=== PATIENT | male | born 1990 | race Caucasian/White ===

== ENCOUNTER 2018-04-19 16:46 | Emergency (ER) | payer OTHER ==
[2018-04-19 16:52] VITALS: BP 135/69
[2018-04-19] MEDS ORDERED: CEPHALEXIN 500 MG CAP PO ONE (17:18)
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
[2018-04-19] MEDS ORDERED: CEPHALEXIN 500MG PREPACK#4 BTL TAKEHOME ONE (17:28)
== END 2018-04-19 17:44 | disposition home or self-care (01) ==
DX: M71.122 Other infective bursitis, left elbow (principal); L03.90 Cellulitis, unspecified

== ENCOUNTER 2018-04-20 18:54 | Inpatient (IN) | payer OTHER ==
--- NOTE | 2018-04-20 19:08 | EDPHY ---
H & P Stated Complaint: L elbow redness swelling increasing since visit here 04/19 on keflex x 24 h - Medical/Surgical History Hx Asthma: No Hx Chronic Respiratory Disease: No Hx Diabetes: No Hx Cardiac Disease: No Hx Renal Disease: No Hx Cirrhosis: No Hx Alcoholism: No Hx HIV/AIDS: No Hx Splenectomy or Spleen Trauma: No Other PMH: denies - Social History Smoking Status: Never smoked Time Seen by Provider: 04/20/18 19:01 HPI/ROS: CHIEF COMPLAINT: Worsening left elbow redness HISTORY OF PRESENT ILLNESS: 27-year-old immunocompetent male seen emergency department approximately 24 hr ago by myself for left dorsal elbow erythema, clinical findings consistent with septic olecranon bursitis with overlying cellulitis. Aspiration not performed at that time due to concerns with the overlying cellulitis. He has taken 3 dosages of Keflex. He notes that the erythema has increased significantly. Denies fever or chills. REVIEW OF SYSTEMS: 10 systems reviewed and negative with the exception of the elements mentioned in the history of present illness PAST MEDICAL & SURGICAL HISTORY: No pertinent medical or surgical history SOCIAL HISTORY: operations manager/coordinator PHYSICAL EXAM (Prior to examination, patient consented to physical exam, hands were washed and my usual and customary physical exam procedures followed) 1) GENERAL: Well-developed, well-nourished, alert and oriented. Appears to be in no acute distress. 2) HEAD: Normocephalic, atraumatic 3) HEENT: Pupils equal, round, reactive to light bilaterally. Sclera anicteric. 4) NECK: Full range of motion, no meningeal signs. 5) LUNGS: Clear auscultation bilaterally, no wheezes, no rhonchi, no retractions. 6) HEART: Regular rate and rhythm, no murmur, no heave, no gallop. 7) ABDOMEN: No guarding, no rebound, no focal tenderness, negative McBurney's, negative Gonzalez's, negative Rovsing's, negative peritoneal sign, 8) MUSCULOSKELETAL: Left upper extremity: Compared to approximately 24 hr ago there has been a significant increase in the amount of erythema and induration. There is a central lesion on the dorsal elbow which continues. There is no drainage. No pain with axial loading of the joint. 9) BACK: No CVA tenderness, no midline vertebral tenderness, no fluctuance, no step-off, no obvious trauma, no visual or palpable abnormality. 10) SKIN: No rash, no petechiae. 11) Psychiatric: Patient is oriented X 3, there is no agitation. DIFFERENTIAL DIAGNOSIS: in No particular order including but not limited to septic arthritis, septic bursitis, cellulitis, necrotizing fasciitis, antibiotic failure (Madison Noble Tiffanie) Constitutional: Initial Vital Signs Temperature (C) 36.8 C 04/20/18 18:57 Heart Rate 72 04/20/18 18:57 Respiratory Rate 16 04/20/18 18:57 Blood Pressure 131/62 H 04/20/18 18:57 O2 Sat (%) 97 04/20/18 18:57 O2 Delivery Mode Room Air Allergies/Adverse Reactions: No Known Allergies Allergy (Verified 04/20/18 18:56) Home Medications: Medication Instructions Recorded Cephalexin [Keflex] 500 mg PO TID 7 Days cap 04/19/18 Medical Decision Making ED Course/Re-evaluation: 7:40 p.m.: Consultation with Dr. Honey Randhawa hospitalist will admit patient. Patient was also seen and examined by Dr. Lazara Danielle in the ER. Will plan on admission for worsening cellulitis of the left elbow. This time patient continues to have overlying cellulitic skin changes I do not think that aspiration to the olecranon bursa is appropriate. Doubt septic arthritis. Doubt necrotizing fasciitis. (Madison Noble) This patient was seen and examined by me. He presents with worsening olecranon bursitis/cellulitis of the left elbow. Elbow range of motion is non painful and I do not suspect a joint infection. I agree with the above assessment and plan. (Lazara Danielle) - Data Points Laboratory Results: Laboratory Results 04/20/18 19:10 04/20/18 19:10 Medications Given: Ampicillin Sodium/Sulbactam (Sodium 3 gm/ Sodium Chloride) 100 mls @ 200 mls/ hr IV Q6HRS ELMER PRN Reason: Protocol Stop: 05/21/18 11:59 Last Admin: 04/21/18 17:56 Dose: 100 mls Ibuprofen (Motrin) 600 mg PO Q6HRS PRN PRN Reason: Pain, Mild Stop: 10/17/18 21:16 Last Admin: 04/20/18 21:45 Dose: 600 mg Tramadol HCl (Ultram) 50 mg PO Q6HRS PRN PRN Reason: Pain, Moderate Able to Take PO Stop: 10/17/18 21:16 Last Admin: 04/21/18 15:57 Dose: 50 mg Discontinued Medications Cefazolin Sodium/Dextrose (Ancef 1 Gm (Premix)) 50 mls @ 200 mls/hr IV EDNOW ONE PRN Reason: Protocol Stop: 04/20/18 19:19 Last Admin: 04/20/18 19:32 Dose: 50 mls Cefazolin Sodium/Dextrose (Ancef 1 Gm (Premix)) 50 mls @ 200 mls/hr IV Q8H ELMER PRN Reason: Protocol Stop: 05/21/18 03:59 Last Admin: 04/21/18 03:21 Dose: 50 mls Lidocaine HCl (Lidocaine Hcl 1%) 0 mg MISC ONCALL ONE Stop: 04/21/18 13:31 Last Admin: 04/21/18 13:32 Dose: 300 mg Departure - Departure Disposition: [facility] Clinical Impression: Cellulitis of left elbow Condition: Fair
[2018-04-20 19:26] LABS: PLATELET COUNT 240 10^3/uL (150-400)
[2018-04-20] MEDS ORDERED: ACETAMINOPHEN 325 MG TAB PO PRN (21:17)
[2018-04-20] MEDS ORDERED: ONDANSETRON 4 MG/2 ML VIAL IVP PRN (21:17)
[2018-04-20] MEDS ORDERED: IBUPROFEN 600 MG TAB PO PRN (21:17)
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
[2018-04-21 05:33] LABS: PLATELET COUNT 223 10^3/uL (150-400)
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
[2018-04-21] MEDS: AMPICILLIN/SULBACTAM 3 GM in NS 100 ML IV SCH ×3 (12:22→23:40)
[2018-04-21] MEDS ORDERED: LIDOCAINE 1% 300 MG/30 ML SDV MISC ONE (13:30)
[2018-04-21] MEDS ORDERED: HYDROCODONE/APAP 5/325 TAB PO PRN (14:09)
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
--- NOTE | 2018-04-21 14:23 | ASMTCMCOM ---
CM Note CM Note Notes: MELINDA spoke to ELDER Stratton regarding d/c POC. Pt will most likely d/c independent when medically stable. Pt is currently on iv ampicillin. CM available for changes. Plan: Independent Date Signed: 04/21/2018 02:01 PM Electronically Signed By:AMANDA Garay
[2018-04-21] MEDS: traMADol 50 MG TAB PO PRN (15:57)
[2018-04-22] MEDS: AMPICILLIN/SULBACTAM 3 GM in NS 100 ML IV SCH ×2 (05:19→12:09)
--- NOTE | 2018-04-22 08:12 | SOAPPROG ---
SOAP Progress Note Assessment/Plan: Assessment: septic olecranon bursitis cellulitis s/p i and d Plan:continue elevation, and iv abx i would not d/c home until cellulitis is clinically improved i will see him tomorrow am, if not substantially improved, i will repeat i and d 04/22/18 08:09 Subjective: decreased overall pain still with forearm swelling Objective: Vital Signs Temp Pulse Resp BP Pulse Ox 37.6 C 71 17 128/67 H 96 04/21/18 23:38 04/21/18 23:38 04/21/18 23:38 04/21/18 23:38 04/21/18 23:38 Microbiology 04/21/18 14:33 Gram Stain - Final Elbow - Other Laboratory Results 04/21/18 04:48 04/21/18 04/22/18 04/23/18 05:59 05:59 05:59 Intake Total 300 650 Balance 300 650 dressing removed packing removed less than 1 cc of gross purulenc no further purulence expressed cellulitis from mid forearm to distal humerus, with induration ICD10 Worksheet Patient Problems: Problems Problem Status Onset Cellulitis of left elbow Acute
--- NOTE | 2018-04-22 08:14 | PDIAF ---
- Diagnosis Diagnosis: septic left olecranon bursitis Code Status: Full Code - Medication Management Discharge Medications: electronically signed and located in the Home Medication List. - Orders Diet Recommendation: no restrictions on diet Diet Texture: Regular Texture Diet Additional Instructions: daily dressing changes to left elbow elevate as much as possible seek attn for increasing redness, swelling, drainage or discharge f/u at one week [facility] ortho - Follow Up Care Current Providers and Referrals: NONE *PRIMARY CARE P,. [Primary Care Provider] - Zachary Farrar MD [Medical Doctor] -
--- NOTE | 2018-04-22 08:25 | PDMN ---
Medical Necessity Medical necessity: [facility] M70 cellulitis : failed oupt Keflex, sig. erythema, ID consult, ortho consult: progressive septic olecranon bursitis req I/D and further IV abx, status changed to INPT 04/21 for ongoing med nec care of cellulitis req IV abx
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
--- NOTE | 2018-04-22 13:36 | HOSPPROG ---
Hospitalist Progress Note Assessment/Plan: 27y male with c/o left elbow pain. First encounter, chart reviewed. Reviewed his care w Dr Carter. #LUE cellulitis, olecranon bursitis -s/p I & D -MSSA, abx changed to Ancef -had been on Unasyn #leukocytosis due to the above #plan: continue IV abx, he was hopeful to dc soon, to go to [place] on , then to [place] on 05/03 -told him we need to see his response to the antibiotics, his cellulitis is quite extensive Subjective: Rex has no complaints of significant pain. Objective: Vital Signs Temp Pulse Resp BP Pulse Ox 36.9 C 57 L 18 121/72 H 96 04/22/18 08:32 04/22/18 08:32 04/22/18 08:32 04/22/18 08:32 04/22/18 08:32 Microbiology 04/21/18 14:33 Gram Stain - Final Elbow - Other 04/21/18 04/22/18 04/23/18 05:59 05:59 05:59 Intake Total 650 Balance 650 - Physical Exam Constitutional: no apparent distress, appears nourished, not in pain Eyes: PERRL Ears, Nose, Mouth, Throat: hearing normal Cardiovascular: regular rate and rhythym, no murmur, rub, or gallop Respiratory: no respiratory distress Gastrointestinal: normoactive bowel sounds Skin: warm, other (left elbow slightly boggy, has packed dressing in place, residual yellowish drainage, left forearm to wrist red and swollen, left elbow up through the tricep area reddened, nontender) Neurologic: AAOx3 Psychiatric: interacting appropriately ICD10 Worksheet Patient Problems: Problems Problem Status Onset Cellulitis of left elbow Acute
--- NOTE | 2018-04-22 14:10 | PCMIDPN ---
Assessment/Plan: # LUE Cellulitis, bursitis s/p surgical revision. Extensive cellulitis on forearm and upper arm remains. Minimal pain. Cx w MSSA --I Expressed some concern about being in a stage of healing from infection that would allow for air travel on but will re-assess tomorrow --dc Augmentin --start high dose Ancef --continue elevation --05/03 going to [place], may have challenges w dealing w wound on L elbow med Unasyn 3gm iV q6h, #1 micro blood cx (2) neg OR cx : MSSA Subjective: denies pain associated with LUE no diarrhea no rash Objective: Vital Signs Temp Pulse Resp BP Pulse Ox 36.9 C 57 L 18 121/72 H 96 04/22/18 08:32 04/22/18 08:32 04/22/18 08:32 04/22/18 08:32 04/22/18 08:32 Microbiology 04/21/18 14:33 Gram Stain - Final Elbow - Other 04/21/18 04/22/18 04/23/18 05:59 05:59 05:59 Intake Total 650 Balance 650 Gen: healthy appearing young male NAD CV gema RR Chest: breathing easy, clear LUE : erythema extending lateral arm to wrist and 2/3 up upper arm, obvious expansion from prior drawn lines. Open packed wound over elbow. No crepitis, minimal pain to palpation R Forearm PIV c/d/i - Time Spent With Patient Time Spent with Patient: greater than 35 minutes Time Spent with Patient: Greater than 35 minutes spent on this patients care, greater than 50% of time spent counseling, educating, and coordinating care regarding the above mentioned plan. ICD10 Worksheet Patient Problems: Problems Problem Status Onset Cellulitis of left elbow Acute
[2018-04-22] MEDS: ceFAZolin 2 GM/DEXTROSE 100 ML IV SCH ×2 (15:01→21:42)
[2018-04-23] MEDS: traMADol 50 MG TAB PO PRN (01:48)
[2018-04-23] MEDS: ceFAZolin 2 GM/DEXTROSE 100 ML IV SCH (05:27)
[2018-04-23 05:52] LABS: PLATELET COUNT 271 10^3/uL (150-400)
--- NOTE | 2018-04-23 06:56 | SOAPPROG ---
SOAP Progress Note Assessment/Plan: Assessment: septic olecranon bursitis cellulitis s/p i and d Plan:continue elevation, and transition to oral abx per ID cellulitis improving but not resolved bursitis without active drainage clinically starting to improve i am ok with flight to [place] tomorrow i would not recommend leaving to [place] on unless cellulitis and active infection is resolved seek attn for increasing redness, swelling, drainage, discharge 04/22/18 08:09 04/23/18 06:53 Subjective: decreased pain Objective: Vital Signs Temp Pulse Resp BP Pulse Ox 37.0 C 72 16 150/75 H 95 04/22/18 23:16 04/22/18 23:16 04/22/18 23:16 04/22/18 23:16 04/22/18 23:16 Microbiology 04/21/18 14:33 Gram Stain - Final Elbow - Other Laboratory Results 04/23/18 04:55 04/22/18 04/23/18 04/24/18 05:59 05:59 05:59 Intake Total 650 Balance 650 dressing changed no gross purulence no expressible purulence at elbow cellulitis diminished in intensity, decreased swelling and erythema but inflammation still present from dorsal hand to distal humerus active elbow flex and ext ICD10 Worksheet Patient Problems: Problems Problem Status Onset Cellulitis of left elbow Acute
[2018-04-23 07:32] VITALS: BP 133/77
--- NOTE | 2018-04-23 09:55 | HOSPPROG ---
Hospitalist Progress Note Assessment/Plan: 27y male with c/o left elbow pain. #LUE cellulitis, olecranon bursitis -s/p I & D -MSSA, abx changed to Ancef -had been on Unasyn -will come to [facility] [address] to get iv abx, Dr Rodriguez will evaluate him on Saturday -a script for Augmentin will be given to him ot start after he is done w IV abx #leukocytosis due to the above -resolved #plan: evaluated Benjie balderas Dr Rodriguez, will continue IV abx, he will come to [facility], will get a dose of Ceftriaxone prior to dc Subjective: benjie has no complaints, has some tenderness around the elbow area when packed dressing was removed. Objective: Vital Signs Temp Pulse Resp BP Pulse Ox 36.6 C 54 L 12 133/77 H 96 04/23/18 07:31 04/23/18 07:31 04/23/18 07:31 04/23/18 07:31 04/23/18 07:31 Microbiology 04/21/18 14:33 Gram Stain - Final Elbow - Other Laboratory Results 04/23/18 04:55 04/22/18 04/23/18 04/24/18 05:59 05:59 05:59 Intake Total 650 Balance 650 - Physical Exam Constitutional: no apparent distress, appears nourished Eyes: PERRL Ears, Nose, Mouth, Throat: hearing normal Respiratory: no respiratory distress Skin: warm, other (left forerm up to the bicep, tricep area still w redness and some swelling, some improvement since yesterday) Neurologic: AAOx3 Psychiatric: interacting appropriately ICD10 Worksheet Patient Problems: Problems Problem Status Onset Cellulitis of left elbow Acute
--- NOTE | 2018-04-23 10:22 | PCMIDPN ---
Assessment/Plan: Assessment/Plan: * Left olecranon septic bursitis with concomitant left upper extremity cellulitis: Overall elbow is significantly improved but still with residual cellulitis extending approximately to wrist and mid upper arm. Culture show growth of MSSA. Do not feel patient is ready to transition to oral antibiotic therapy but think weekend continue this for another 48 hr as an outpatient on [address] [place] [address]. Will re-evaluate when he is on [address] [place] [address] on 04/25/2018 to determine if can transition to oral antibiotic therapy at that point in time. Will utilize ceftriaxone 2 g IV daily for this purpose given long half-life. Anticipate transition to Augmentin 875 mg twice daily times 14 days thereafter. Discussed with patient that regular dressing change with exchange of packing necessary until wound heals. Side effects of Augmentin including potential for allergic reactions or diarrhea or also reviewed. 04/23/18 10:16 Subjective: Patient with less elbow pain but persistent erythema and swelling. Objective: Vital Signs Temp Pulse Resp BP Pulse Ox 36.6 C 54 L 12 133/77 H 96 04/23/18 07:31 04/23/18 07:31 04/23/18 07:31 04/23/18 07:31 04/23/18 07:31 Microbiology 04/21/18 14:33 Gram Stain - Final Elbow - Other Wound Culture - Final Staphylococcus Aureus Laboratory Results 04/23/18 04:55 04/22/18 04/23/18 04/24/18 05:59 05:59 05:59 Intake Total 650 Balance 650 Cefazolin # 2, antibiotics # 3 Elbow cultures MSSA Blood cultures x2 no growth - Physical Exam General Appearance: alert, no apparent distress EENT: No scleral icterus Extremities: inflammation (Left upper extremity with persistent edema over forearm and mid upper arm; edema markedly decreased over olecranon region with no residual fluctuance; erythema with warmth present over forearm and to mid upper arm with some decreased when arm is elevated, no crepitus or bulla) Skin: No rash - Time Spent With Patient Time Spent with Patient: greater than 35 minutes Time Spent with Patient: Greater than 35 minutes spent on this patients care, greater than 50% of time spent counseling, educating, and coordinating care regarding the above mentioned plan. ICD10 Worksheet Patient Problems: Problems Problem Status Onset Cellulitis of left elbow Acute
--- NOTE | 2018-04-23 10:39 | ASMTLACE ---
BRAYDENE Length of stay for Answers: 2 days current admission Acuity / Level of Answers: Yes Care: Did the patient have an inpatient admission? # of Emergency department Answers: 1-2 visits in the last 6 months Score: 6 Date Signed: 04/23/2018 10:23 AM Electronically Signed By:Luz Maria Wilson RN
--- NOTE | 2018-04-23 10:40 | ASMTCMCOM ---
CM Note CM Note Notes: Spoke w/, pt will need 2 days of IV abx as an out pt. CM met with pt to schedule, he will come thur/fri at 11:30. Pt is aware that he needs to check in downstairs on the first day. DC Plan; Independent Date Signed: 04/23/2018 10:37 AM Electronically Signed By:Luz Maria Wilson RN
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
== END 2018-04-23 13:10 | disposition home or self-care (01) | DRG 603 ==
LOC: F3E 20:35 → OBSVTOIN 04-21 11:26
PROVIDERS: ADMIT Internal Medicine; ATTEND Internal Medicine
PROC: 0H9EXZZ Drainage of Left Lower Arm Skin, External Approach (ICD-10-PCS; principal; 2018-04-22)
DX: L03.114 Cellulitis of left upper limb (principal); M70.22 Olecranon bursitis, left elbow; B95.61 Methicillin susceptible Staphylococcus aureus infection as the cause of diseases classified elsewhere; D72.829 Elevated white blood cell count, unspecified
CPT/HCPCS: 96374; G0378; J0295; J0690; J0696